=== PATIENT | male | born 1955 | race Two or more races ===

== ENCOUNTER 2025-06-10 11:48 | Emergency (ER) | payer OTHER ==
[~2025-06-10] VITALS: Ht 175.3 cm; Wt 117.9 kg
[2025-06-10 12:31] VITALS: BP 168/95; O2SAT 97
[2025-06-10] MEDS ORDERED: CELEBREX50 MG PO (12:32)
[2025-06-10] MEDS ORDERED: HYDROCODONE-ACE15 M2 PO (12:34)
[2025-06-10] MEDS ORDERED: ZESTRIL10 M1 (12:34)
[2025-06-10] MEDS ORDERED: ZANAFLEX4 M1 (12:35)
[2025-06-10] MEDS ORDERED: DEXAMETHASONE SODIUM PHOSPHATE 4 MG/ML VIAL IM ONE (14:45)
[2025-06-10] MEDS ORDERED: ORPHENADRINE CITRATE 30 MG/ML AMPUL IM ONE (14:45)
[2025-06-10] MEDS ORDERED: CYCLOBENZAPRINE5 MG PO (14:59)
[2025-06-10] MEDS ORDERED: NORFLEX100MG PO (15:00)
== END 2025-06-10 17:47 ==
LOC: ER 15:16
DX: M54.50 Low back pain, unspecified (principal); I10 Essential (primary) hypertension; Z91.040 Latex allergy status
CPT/HCPCS: 96372; 99282; J1100; J2360